=== PATIENT | female | born 1995 ===

== ENCOUNTER 2021-03-30 03:30 | Inpatient (IN) | payer SELFPAY ==
[2021-03-30] MEDS ORDERED: Misoprostol 200 MCG Tab PO PRN (12:33)
[2021-03-30] MEDS ORDERED: Sodium Chloride 0.9% 10 ML Syringe FLUSH PRN (12:33)
[2021-03-30] MEDS ORDERED: Lidocaine 1% 50 ML MDV INJECT PRN (12:33)
[2021-03-30] MEDS ORDERED: Sodium Chloride 0.9% 20 ML SDV IV PRN (12:33)
[2021-03-30] MEDS ORDERED: Butorphanol 1 MG/ML SDV IVPUSH PRN (12:33)
[2021-03-30] MEDS ORDERED: Sodium Chloride 0.9% 2.5 ML Syringe FLUSH PRN (12:33)
[2021-03-30] MEDS ORDERED: Nalbuphine 10 MG/1 ML Vial IVPUSH PRN (12:33)
[2021-03-30] MEDS ORDERED: Methylergonovine 0.2 MG/1 ML Amp IM PRN (12:33)
[2021-03-30] MEDS ORDERED: Tranexamic Acid 1,000 MG in Sodium Chloride 0.9% 100 ML IV PRN (12:33)
[2021-03-30] MEDS ORDERED: Water For Irrigation,Sterile 1,000 ML Container IRR PRN (12:33)
[2021-03-30] MEDS ORDERED: Carboprost Tromethamine 250 MCG/1 ML Amp IM PRN (12:33)
[2021-03-30] MEDS ORDERED: Terbutaline 1 MG/ML SDV SUBCUT PRN (12:36)
[2021-03-30] MEDS ORDERED: Oxytocin/0.9 % Sodium Chloride 30 UNIT/500 ML BAG IV SCH ×2 (12:45)
[2021-03-30] MEDS: Lactated Ringers 1,000 ML IV SCH ×2 (13:02→14:50)
[2021-03-30 13:43] LABS: BLOOD UREA NITROGEN,BUN 8 mg/dL (7.0-18.0); CARBON DIOXIDE,CO2 22.5 mmol/L (21.0-32.0); CHLORIDE,CL 105 mmol/L (98-107); GLUCOSE RANDOM 82 mg/dL (74-106); POTASSIUM,K 4.3 mmol/L (3.5-5.1); SODIUM,NA 138 mmol/L (136-145)
[2021-03-30] MEDS ORDERED: Ropivacaine HCl/PF 200 ML ONE (14:29)
[2021-03-30] MEDS ORDERED: ePHEDrine 50 MG/ML SDV IVPUSH PRN (14:50)
[2021-03-30] MEDS ORDERED: Ropivacaine/PF 400 MG/200 ML PCA EPIDUR SCH (15:00)
[2021-03-31] MEDS: Lactated Ringers 1,000 ML IV SCH (00:54)
[2021-03-31] MEDS ORDERED: Benzocaine/Menthol 20%-0.5% Spray 78 GM Cannister TOP PRN (03:44)
[2021-03-31] MEDS ORDERED: Docusate Sodium 100 MG Cap PO PRN (03:44)
[2021-03-31] MEDS ORDERED: oxyCODONE 5 MG Tab PO PRN (03:44)
[2021-03-31] MEDS ORDERED: Ibuprofen 800 MG Tab PO PRN (03:44)
[2021-03-31] MEDS ORDERED: Ibuprofen 400 MG Tab PO PRN (03:44)
[2021-03-31] MEDS ORDERED: Acetaminophen 500 MG Tab PO PRN ×2 (03:44)
[2021-03-31] MEDS ORDERED: Bisacodyl 10 MG Supp RECTAL PRN (03:44)
[2021-03-31] MEDS ORDERED: Witch Hazel Medicated Pads 40/Jar TOP PRN (03:44)
[2021-03-31] MEDS ORDERED: Lanolin 100% Cream 7 GM Tube TOP PRN (03:44)
== END 2021-04-01 12:20 | disposition home or self-care (01) | DRG 807 ==
LOC: MW.OB 03:30 → INTOOBSV 11:47 → MW.OB 11:47 → OBSVTOIN 03-31 03:30 → MW.OB 03-31 09:36
PROVIDERS: ADMIT Obstetrics & Gynecology; ATTEND Obstetrics & Gynecology
PROC: 10E0XZZ Delivery of Products of Conception, External Approach (ICD-10-PCS; principal; 2021-03-31)
PROC: 3E0R3BZ Introduction of Anesthetic Agent into Spinal Canal, Percutaneous Approach (ICD-10-PCS; 2021-03-31)
PROC: 00HU33Z Insertion of Infusion Device into Spinal Canal, Percutaneous Approach (ICD-10-PCS; 2021-03-31)
PROC: 3E0R3BZ Introduction of Anesthetic Agent into Spinal Canal, Percutaneous Approach (ICD-10-PCS; 2021-03-31)
PROC: 00HU33Z Insertion of Infusion Device into Spinal Canal, Percutaneous Approach (ICD-10-PCS; 2021-03-31)
DX: O40.3XX0 Polyhydramnios, third trimester, not applicable or unspecified (principal); Z37.0 Single live birth; Z3A.39 39 weeks gestation of pregnancy; O69.81X0 Labor and delivery complicated by cord around neck, without compression, not applicable or unspecified; Z20.822 Contact with and (suspected) exposure to COVID-19; O77.0 Labor and delivery complicated by meconium in amniotic fluid
CPT/HCPCS: 01967; 36415; 51702; 59025; 59409; 80053; 84550; 85014; 85018; 85027; 86592; 86850; 86900; 86901; A9270-GY; J2590; J2795; J7120; U0002